=== PATIENT | male | born 1960 | race Caucasian/White ===

== ENCOUNTER 2017-02-27 10:51 | Emergency (ER) | payer OTHER ==
[2017-02-27 10:55] VITALS: BP 115/97
--- NOTE | 2017-02-27 11:47 | RADIOLOGY REPORT (SQ) ---
EXAM DESCRIPTION: KNEE LEFT 3 VIEWS COMPLETED DATE/TIME: 02/27/2017 11:29 am REASON FOR STUDY: pain COMPARISON: None. NUMBER OF VIEWS: Three views. TECHNIQUE: AP, lateral, and sunrise patella radiographic images acquired of the left knee. LIMITATIONS: None. FINDINGS: MINERALIZATION: Normal. BONES: No acute fracture or dislocation. No worrisome bone lesions. Spurring on the patella. JOINT: No effusion. No chondrocalcinosis. OTHER: No other significant finding. IMPRESSION: MILD DEGENERATIVE CHANGE. SPURRING ON THE SUPERIOR PATELLA. NO ACUTE FINDINGS. TECHNICAL DOCUMENTATION: JOB ID: [id number] [employer]- All Rights Reserved
--- NOTE | 2017-02-27 12:04 | ER Document Report ---
ED Extremity Problem, Lower - General Chief Complaint: Knee Pain Stated Complaint: LEFT KNEE INJURY Time Seen by Provider: 02/27/17 10:58 Mode of Arrival: Ambulatory Information source: Patient TRAVEL OUTSIDE OF THE [place] IN LAST 30 DAYS: No - HPI Patient complains to provider of: Pain - This is a 57-year-old male presents to the emergency room today stating he had discomfort to his left knee which occurred when he was walking through his yard simply turned on the knee wrong. He felt a slight pop and does have pain to the posterior aspect of his knee. - Related Data Allergies/Adverse Reactions: No Known Allergies Allergy (Unverified 02/27/17 11:17) Past Medical History - General Information source: Patient - Social History Smoking Status: Never Smoker Chew tobacco use (# tins/day): No Frequency of alcohol use: None Drug Abuse: None Family History: None Patient has suicidal ideation: No Patient has homicidal ideation: No Renal/ Medical History: Denies: Hx Peritoneal Dialysis Musculoskeltal Medical History: Reports Hx Arthritis - rheumatoid Surgical Hx: Negative - Immunizations Hx Diphtheria, Pertussis, Tetanus Vaccination: Yes Review of Systems - Review of Systems Constitutional: No symptoms reported EENT: No symptoms reported Cardiovascular: No symptoms reported Respiratory: No symptoms reported Gastrointestinal: No symptoms reported Genitourinary: No symptoms reported Male Genitourinary: No symptoms reported Musculoskeletal: No symptoms reported Skin: No symptoms reported Hematologic/Lymphatic: No symptoms reported Neurological/Psychological: No symptoms reported Physical Exam - Vital signs Vitals: Temp Pulse Resp BP Pulse Ox 98.2 F 76 18 115/97 H 97 02/27/17 10:52 02/27/17 10:52 02/27/17 10:52 02/27/17 10:52 02/27/17 10:52 Interpretation: Normal - General General appearance: Appears well, Alert - HEENT Head: Normocephalic, Atraumatic Eyes: Normal Pupils: PERRL - Respiratory Respiratory status: No respiratory distress Chest status: Nontender Breath sounds: Normal Chest palpation: Normal - Cardiovascular Rhythm: Regular Heart sounds: Normal auscultation Murmur: No - Abdominal Inspection: Normal Distension: No distension Bowel sounds: Normal Tenderness: Nontender Organomegaly: No organomegaly - Back Back: Normal, Nontender - Extremities General upper extremity: Normal inspection, Nontender, Normal color, Normal ROM , Normal temperature General lower extremity: Normal inspection, Nontender, Normal color, Normal ROM , Normal temperature, Normal weight bearing. No: Edenilson's sign Knee: Other - Palpable Gaines's cyst posterior aspect of the knee x-ray revealed a patella spur superiorly. - Neurological Neuro grossly intact: Yes Cognition: Normal Orientation: AAOx4 [place] Coma Scale Eye Opening: Spontaneous [place] Coma Scale Verbal: Oriented [place] Coma Scale Motor: Obeys Commands [place] Coma Scale Total: 15 Speech: Normal Motor strength normal: LUE, RUE, LLE, RLE Sensory: Normal - Psychological Associated symptoms: Normal affect, Normal mood - Skin Skin Temperature: Warm Skin Moisture: Dry Skin Color: Normal Course - Re-evaluation Re-evalutation: 02/27/17 12:01 Good distal pulses neurovascular sensation intact ambulatory with a limp due to discomfort. - Vital Signs Vital signs: Temp Pulse Resp BP Pulse Ox 98.2 F 76 18 115/97 H 97 02/27/17 10:52 02/27/17 10:52 02/27/17 10:52 02/27/17 10:52 02/27/17 10:52 Discharge - Discharge Clinical Impression: Bone spur Bakers cyst Qualifiers: Laterality: left Qualified Code(s): M71.22 - Synovial cyst of popliteal space [ Gaines], left knee Disposition: HOME, SELF-CARE Instructions: Use of Crutches ([facility]), Ice & Elevation ([facility]), Oral Narcotic Medication ([facility]) Additional Instructions: Gaines's Cyst A Gaines's cyst is a sack of fluid behind the knee. These cysts are common in people with arthritis or old knee injuries. Fluid in the knee joint creates a bulging sack in the "capsule" surrounding the joint. The cyst may start to hurt after activity such as squatting, running, or stair-climbing. Fluid trapped in this sack causes pain and swelling. The swelling from a Gaines's cyst tends to spread down the leg. The lower leg can become red and warm. Rest your knee. Avoid activities such as squatting, lifting, climbing, and running. A knee brace may help you rest the knee. If the pain began suddenly while using the leg, use cold packs for the first two days to reduce pain and swelling. If the knee has been painful for a few days, use warm packs. Anti- inflammatory medicine is often prescribed. Once the pain has improved, gradually return to activity. Exercises to strengthen the quadriceps muscle can make the knee more stable, but you must be careful not to irritate the cyst while exercising. Call the doctor or return if you have increasing swelling or redness, fever , chills, chest pain, or shortness of breath. Superior patella spur. Follow-up with private doctor in 1 to 2 days for final radiology readings please return to the emergency room for any change worsening condition. Follow up with private M.D. for all other routine health care needs. Prescriptions: Hydrocodone/Acetaminophen [Perrin 5-325 Tablet] 1 each PO Q4 PRN #20 tablet PRN Reason: Naproxen Sodium [Naproxen Sodium ER] 500 mg PO Q12 PRN #20 tablet.sa PRN Reason:
== END 2017-02-27 12:38 | disposition home or self-care (01) ==
LOC: ER 10:51
DX: M71.22 Synovial cyst of popliteal space [Baker], left knee (principal); M77.9 Enthesopathy, unspecified; M25.562 Pain in left knee; X50.1XXA Overexertion from prolonged static or awkward postures, initial encounter
CPT/HCPCS: 99283